=== PATIENT | female | born 1930 | race African-American/Black ===

== ENCOUNTER 2016-10-27 21:14 | Inpatient (IN) ==
[2016-10-27] MEDS ORDERED: ONDANSETRON 4 MG/2 ML VIAL IV STA (21:45)
[2016-10-27] MEDS ORDERED: MORPHINE 2 MG/1 ML SYRINGE IV STA (21:45)
--- NOTE | 2016-10-27 22:02 | Emergency Department Note ---
Erika Ricardo Emily, am scribing for, and in the presence of, Cristofer Shearer MD 21: 47. Manfred Ricardo Robert M, MD, personally performed the services described in this documentation, ascribed by Niki James in my presence, and it is both accurate and complete . Arrival - Arrival Chief Complaint: Extremity Injury Stated Complaint: femur fx ED Nursing Triage Note: Patient to ED via EMS transfered to us from [facility] ED with c/o right femur neck fracture and dislocation s/p fall at home this morning. Patient arrives with radiology dis and records from [place] ED. Patient ntoed to have shortening and external rotation upon arrival. positive pedal pulses. Mode of Arrival: Stretcher Limitations: No Limitations Source: Patient - History of Present Illness HPI Narrative: Pt is a 85 y/o female who came to ED by EMS transferred from [facility] ED with c/o right femur neck fracture and dislocation s/p fall at home this afternoon. Family member notes getting to hospital around 4pm this afternoon. Pt states she is in pain in ED. Onset (ago): hour(s) Consistency: constant Severity: moderate Severity scale (1-10): 7 Quality: aching Allergies/Adverse Reactions: Allergies Allergy/AdvReac Type Severity Reaction Status Date / Time No Known Allergies Allergy Unverified 10/27/16 21:29 Review of System - Review of System 12 point system: reviewed and no additional remarkable complaints except as stated - Review of System Constitutional: Absent: fever Cardiovascular: Absent: chest pain, syncope Gastrointestinal: Absent: abdominal pain Musculoskeletal: Present: leg pain (right leg). Absent: neck pain Skin: Absent: rash Neurological: Absent: headache Medical,Surgical,& Family Hx - Medical History Cardio: History of: Hypertension Endocrine: History of: Dyslipidemia - Surgical History Orthopedic Surgeries: Surgical HX of;: Orthopedic Surgery (left hip) - Social History Smoking Status: Never smoker Frequency of Alcohol Use: None Type of Drug Use: None Exam Vital Signs: Vital Signs Temperature 100.8 F H 10/27/16 21:14 Pulse Rate 75 10/27/16 21:14 Respiratory Rate 18 10/27/16 21:14 Blood Pressure 187/95 10/27/16 21:14 O2 Sat by Pulse Oximetry 95 10/27/16 21:14 - General General appearance: alert, in distress (secondary to pain) - Head Head exam: Present: atraumatic, normocephalic - Eye Eye exam: Present: PERRL, EOMI - ENT ENT exam: Present: mucous membranes moist. Absent: mucous membranes dry - Neck Neck exam: Present: full ROM. Absent: tenderness - Chest Chest inspection: Present: symmetric chest wall rise. Absent: tenderness - Respiratory Respiratory exam: Present: normal lung sounds bilaterally. Absent: respiratory distress - Cardiovascular Cardiovascular exam: Present: regular rate, normal rhythm, normal heart sounds - Extremities Exam Extremities exam: Present: tenderness (shortened right leg and slightly rotated ; good pulses). Absent: full ROM (limited ROM due to pain), pedal edema - Neurological Exam Neurological exam: Present: alert, oriented X3, CN II-XII intact. Absent: motor sensory deficit - Psychiatric Psychiatric exam: Present: normal affect, normal mood - Skin Skin exam: Present: warm, dry Course - Consultations Consultation #1: The labs are returning. Dr. Schmidt was patient will admit the patient to the hospitalist service. The previous orthopedic/hospitalist admission arrangement. She wants me to call her again when all the labs come back. Time: 22:42 Consultation #2: The patient's labs have returned. In the interim I admitted the patient to Dr. Baum and will have the nurses notify her when the labs have returned. Time: 23:46 Results - Labs CBC & BMP: 10/27/16 22:08 10/27/16 22:08 Lab Results: I have reviewed the patients labs Labs: Lab Results WBC 8.4 T/CUMM (4-12) 10/27/16 22:08 RBC 3.21 MC/CUMM (3.8-5.5) L 10/27/16 22:08 Hgb 10.2 GM/DL (12.0-16.0) L 10/27/16 22:08 Hct 30.3 VOL% (35.7-47.0) L 10/27/16 22:08 MCV 94.4 FL (87-102) 10/27/16 22:08 MCH 32 PG (27-34) 10/27/16 22:08 MCHC 33.7 GM/DL (32-36) 10/27/16 22:08 RDW 14.9 % (9.3-17.3) 10/27/16 22:08 Plt Count 176 T/CUMM (130-400) 10/27/16 22:08 MPV 10.7 FL (9.6-12.0) 10/27/16 22:08 Neut % (Auto) 70.4 % (38.7-73.9) 10/27/16 22:08 Lymph % (Auto) 16.4 % (21.3-54.2) L 10/27/16 22:08 [place] % (Auto) 11.7 % (1.7-12.7) 10/27/16 22:08 Eos % (Auto) 1.1 % (0.00-10.9) 10/27/16 22:08 Baso % (Auto) 0.2 % (0.0-0.8) 10/27/16 22:08 Neut # (Auto) 5.9 10*3/uL (1.4-7.4) 10/27/16 22:08 Lymph # (Auto) 1.4 10*3/uL (1.4-4.0) 10/27/16 22:08 [place] # (Auto) 1.0 10*3/uL (0.11-0.8) H 10/27/16 22:08 Eos # (Auto) 0.1 10*3/uL (0.0-0.87) 10/27/16 22:08 Baso # (Auto) 0.0 10*3/uL (0.0-0.2) 10/27/16 22:08 Immature Gran % 0.2 % 10/27/16 22:08 Nucleated RBC % 0.0 /100WBC 10/27/16 22:08 Immature Gran # 0.02 # 10/27/16 22:08 Nucleated RBCs # 0.00 10*3/uL 10/27/16 22:08 Sodium 145 MMOL/L (136-145) 10/27/16 22:08 Potassium 2.9 MMOL/L (3.5-5.1) L 10/27/16 22:08 Chloride 111 MMOL/L (98-107) H 10/27/16 22:08 Carbon Dioxide 26 MMOL/L (21-32) 10/27/16 22:08 Anion Gap 10.9 MMOL/L (5.0-15.0) 10/27/16 22:08 BUN 12 MG/DL (7-18) 10/27/16 22:08 Creatinine 1.20 MG/DL (0.55-1.02) H 10/27/16 22:08 GFR Calculation 44 ML/MIN 10/27/16 22:08 BUN/Creatinine Ratio 10.00 RATIO (6.00-20.00) 10/27/16 22:08 Glucose 98 MG/DL (74-106) 10/27/16 22:08 Calculated Osmolality 287.7 MOS/KG (273-304) 10/27/16 22:08 Calcium 8.3 MG/DL (8.5-10.1) L 10/27/16 22:08 Magnesium 1.5 MG/DL (1.8-2.4) L 10/27/16 22:08 Urine Color Straw (Yellow) 10/27/16 22:08 Urine Appearance Clear (Clear) 10/27/16 22:08 Urine pH 5.0 (4.5-8.0) 10/27/16 22:08 Ur Specific [place] 1.004 (1.001-1.035) 10/27/16 22:08 Urine Protein Negative MG/DL 10/27/16 22:08 Urine Glucose (UA) Negative mg/dL (Negative) 10/27/16 22:08 Urine Ketones Negative mg/dL (Negative) 10/27/16 22:08 Urine Blood Small mg/dL (Negative) 10/27/16 22:08 Urine Nitrate Positive (Negative) H 10/27/16 22:08 Urine Bilirubin Negative mg/dL (Negative) 10/27/16 22:08 Urine Urobilinogen < 2.0 EU/DL (0.2-1.0) H 10/27/16 22:08 Urine Leukocytes Negative Marcelino/ul (Negative) 10/27/16 22:08 Urine RBC <1 /HPF (0-4) 10/27/16 22:08 Urine WBC 1 /HPF (0-6) 10/27/16 22:08 Ur Culture Indicated? Results to follow 10/27/16 22:08 Disposition Clinical Impression: Subcapital fracture of right hip Case discussed with: patient, patient's family Disposition: Disch To Home/Self Care Condition: Stable Time of Disposition: 23:47
[2016-10-27] MEDS ORDERED: ONDANSETRON 4 MG/2 ML VIAL ONE (22:28)
[2016-10-27] MEDS ORDERED: MORPHINE 2 MG/1 ML SYRINGE ONE (22:28)
[2016-10-27 22:30] LABS: Basophils % 0.2 % (0.0-0.8); Eosinophils # 0.1 10*3/uL (0.0-0.87); Eosinophils % 1.1 % (0.00-10.9); Hematocrit 30.3 VOL% (35.7-47.0); Hemoglobin 10.2 GM/DL (12.0-16.0); Immature Granulocytes % 0.2 %; Immature Granulocytes Absolute 0.02 #; Lymphocytes # 1.4 10*3/uL (1.4-4.0); Lymphocytes % 16.4 % (21.3-54.2); Mean Corpuscular HGB Conc 33.7 GM/DL (32-36); Mean Corpuscular Hemoglobin 32 PG (27-34); Mean Corpuscular Volume 94.4 FL (87-102); Mean Platelet Volume 10.7 FL (9.6-12.0); Monocytes % 11.7 % (1.7-12.7); Neutrophils # 5.9 10*3/uL (1.4-7.4); Neutrophils % 70.4 % (38.7-73.9); Platelet Count 176 T/CUMM (130-400); Red Blood Count 3.21 MC/CUMM (3.8-5.5); Red Cell Distribution Width 14.9 % (9.3-17.3); White Blood Count 8.4 T/CUMM (4-12)
[2016-10-27 22:35] LABS: Apearance,Urine CLEAR (Clear); Bilirubin,Urine Negative (Negative); Blood, Urine Small mg/dL (Negative); Glucose,Urine (UA) Negative (Negative); Ketones,Urine Negative (Negative); Nitrite,Urine Positive (Negative); Protein,Urine Negative; RBC,Urine <1 /HPF (0-4); Urine Color Straw (Yellow); Urine Specific Gravity 1.004 (1.001-1.035); Urine Urobilinogen < 2.0 EU/DL (0.2-1.0); WBC,Urine 1 /HPF (0-6)
[2016-10-27 22:49] LABS: Calcium 8.3 MG/DL (8.5-10.1); Magnesium 1.5 MG/DL (1.8-2.4); Osmolality,Calculated 287.7 MOS/KG (273-304); Potassium 2.9 MMOL/L (3.5-5.1)
[2016-10-27] MEDS ORDERED: ONDANSETRON 4 MG/2 ML VIAL IV PRN (22:54)
--- NOTE | 2016-10-28 00:45 | Hospitalist History & Physical ---
Assessment and Plan (1) Subcapital fracture of right hip Status: Acute Assessment and plan: due to fall, patient denies hitting her head on the floor. Plan Orthopedic consult, follow recommendations. Current Visit: Yes (2) Hypokalemia Status: Acute Assessment and plan: we will replete, check Mg level BMP in am Current Visit: Yes (3) UTI (urinary tract infection) Status: Acute Assessment and plan: will start IV Rocephin UC, BC Current Visit: Yes (4) Anemia Status: Acute Assessment and plan: resume Fe supplements, we will monitor H/H closely and transfuse on a prn basis Current Visit: Yes (5) HTN (hypertension) Status: Acute Assessment and plan: we will resume home meds, follow response Current Visit: Yes (6) Hyperlipidemia Status: Acute Assessment and plan: resume statins Current Visit: Yes History of Present Illness Chief complaint: fall resulting in left hip pain History of present illness: Ms. Stiles is a 85 year old female with a history of HTN, CAD s/p stent, hyperlipidemia who presents with a right hip pain. 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 She was taken to [facility] where they discovered a right femur neck fracture and dislocation on Xray and was transferred here for orthopedics evaluation.No history of syncope, chest pain, chest tightness, no leg swelling. No nausea, vomiting.Labs showed presence of a UTI and a potassium of 2.9. We will commence potassium replacements and IV antibiotics. Home Medications Medication Instructions Recorded Confirmed Type Aspirin Tab 325 mg PO DAILY 10/28/16 10/28/16 History Atorvastatin [Lipitor] 20 mg PO BEDTIME 10/28/16 10/28/16 History Ferrous Gluconate 324 mg PO DAILY 10/28/16 10/28/16 History Losartan [Cozaar] 12.5 mg PO DAILY 10/28/16 10/28/16 History Metoprolol Tartrate 100 mg PO BID 10/28/16 10/28/16 History Multivitamin with Minerals 1 each PO DAILY 10/28/16 10/28/16 History [Multivitamins with Minerals] amLODIPine [Norvasc] 5 mg PO DAILY 10/28/16 10/28/16 History Allergies Allergy/AdvReac Type Severity Reaction Status Date / Time No Known Allergies Allergy Unverified 10/27/16 21:29 Medical,Surgical,& Family Hx - Medical History Cardio: History of: Hypertension, Cardiovascular Problems (cardiac stents) Endocrine: History of: Dyslipidemia - Surgical History Orthopedic Surgeries: Surgical HX of;: Orthopedic Surgery (left hip) - Family History Family History: Reports;: Family Cancer (brother, father), Family Heart Disease (brother), Family Hypertension (mother, brother), Family Stroke (brother) - Social History Smoking Status: Never smoker Frequency of Alcohol Use: None Type of Drug Use: None 12 point system: reviewed and no additional remarkable complaints except as stated Exam - Constitutional Vitals: Period Temp Pulse Resp BP Sys/Epps Pulse Ox Last 24 Hr 98.0 F-100.8 F 72-75 18-18 156-187/69-95 95-97 General appearance: no acute distress - Head Head exam: Present: normal inspection - Respiratory Respiratory exam: Present: clear to auscultation bilaterally - Cardiovascular Cardiovascular exam: Present: regular rate and rhythm - GI/Abdominal GI/Abdominal exam: Present: normal bowel sounds - Extremities Exam Extremities exam: Present: other (right hip fracture) - Neurological Exam Neurological exam: Present: alert, oriented X3 Results - Labs CBC & BMP: 10/27/16 22:08 10/27/16 22:08 Lab Results: I have reviewed the past 24 hour labs
[2016-10-28] MEDS ORDERED: ONDANSETRON 4 MG/2 ML VIAL IV PRN (00:50)
[2016-10-28] MEDS ORDERED: MORPHINE 2 MG/1 ML SYRINGE IV PRN (00:50)
[2016-10-28] MEDS ORDERED: SODIUM CHLORIDE 0.45% 1,000 ML IV SCH (01:00)
[2016-10-28 01:09] LABS: Basophils % 0.2 % (0.0-0.8); Eosinophils # 0.1 10*3/uL (0.0-0.87); Eosinophils % 1.4 % (0.00-10.9); Hematocrit 27.9 VOL% (35.7-47.0); Hemoglobin 9.4 GM/DL (12.0-16.0); Immature Granulocytes % 0.4 %; Immature Granulocytes Absolute 0.03 #; Lymphocytes # 0.7 10*3/uL (1.4-4.0); Lymphocytes % 8.5 % (21.3-54.2); Mean Corpuscular HGB Conc 33.7 GM/DL (32-36); Mean Corpuscular Hemoglobin 32 PG (27-34); Mean Corpuscular Volume 94.6 FL (87-102); Mean Platelet Volume 10.8 FL (9.6-12.0); Monocytes # 0.9 10*3/uL (0.11-0.8); Monocytes % 11.4 % (1.7-12.7); Neutrophils # 6.5 10*3/uL (1.4-7.4); Neutrophils % 78.1 % (38.7-73.9); Platelet Count 156 T/CUMM (130-400); Red Blood Count 2.95 MC/CUMM (3.8-5.5); Red Cell Distribution Width 14.9 % (9.3-17.3); White Blood Count 8.3 T/CUMM (4-12)
[2016-10-28] MEDS: cefTRIAXone 1,000 MG in SODIUM CHLORIDE 0.9% 100 ML IV SCH (01:53)
[2016-10-28] MEDS: SODIUM CHLOR 0.45% KCL 20 MEQ 20 MEQ/1,000 ML BAG IV SCH ×2 (01:53→19:20)
[2016-10-28 01:58] LABS: Calcium 7.8 MG/DL (8.5-10.1); Magnesium 1.5 MG/DL (1.8-2.4); Osmolality,Calculated 288.7 MOS/KG (273-304); Potassium 2.8 MMOL/L (3.5-5.1)
--- NOTE | 2016-10-28 06:48 | XRay Report ---
History: Respiratory preop evaluation Date: 10/28/2016 Study: Chest x-ray AP portable Comparison exam: December 05, 2013 The cardiac silhouette is upper normal in size. There is ectasia and tortuosity of the thoracic aorta. No definite mediastinal mass is seen. The pulmonary vasculature is not engorged. There is no gross pleural effusion. There is mild platelike scar or subsegmental atelectasis in the left lung base. There is mild thoracic spondylosis and mild osteopenia. Impression: No definite acute process compared to the previous study. Thoracic aorta ectasia and tortuosity as before. Minimal platelike scar or subsegmental atelectasis left lung base PROCEDURE INTERPRETED AT [facility] DEPARTMENT OF RADIOLOGY Final Report Signed by: Dr. Keiko Kwon
--- NOTE | 2016-10-28 08:19 | EKG Report ---
Stationary ECG Study [facility] ER Test Date: 10/27/2016 10:15:11 PM Pat Name: KETAN ABURTO Department: Room: 322 Gender: F Cnp: : [phone] Requested by: Cristofer Shearer Order Number: [id number] Reading MD: BERONICA HOANG Intervals [place] Rate: 74 P: 65 DE: 168 QRS: -6 QRSD: 98 T: 16 QT: 402 QTc: 429 Interpretive Statements SINUS RHYTHM LOW QRS VOLTAGE IN PRECORDIAL LEADS POSSIBLE INFERIOR MYOCARDIAL INFARCTION, PROBABLY OLD NON-SPECIFIC ST-T CHANGES AND BIATRIAL ABNORMALITY Electronically Signed On 10-30-16 12:10:12 CDT by BERONICA HOANG [email or web address]
[2016-10-28] MEDS ORDERED: MAGNESIUM SULF RIDER 4 GM in PREMIX 1 EACH IV ONE (08:26)
[2016-10-28] MEDS: METOPROLOL TARTRATE 100 MG TABLET PO SCH ×2 (08:40→20:34)
[2016-10-28] MEDS: POTASSIUM CHLORIDE RIDER 10 MEQ in PREMIX 1 EACH IV SCH ×2 (08:40→12:25)
[2016-10-28] MEDS: LOSARTAN 25 MG TABLET PO SCH (08:40)
[2016-10-28] MEDS: MULTIVITAMIN (CENTRUM) TABLET PO SCH (08:40)
[2016-10-28] MEDS: FERROUS GLUCONATE 324 MG TABLET PO SCH (08:40)
[2016-10-28] MEDS: amLODIPine 2.5 MG TABLET PO SCH (08:51)
[2016-10-28] MEDS: PANTOPRAZOLE 40 MG TABLET PO SCH (08:51)
--- NOTE | 2016-10-28 09:03 | Orthopedic Consult Note ---
History of Present Illness Chief complaint: Right hip pain History of present illness: Ms. Stiles is a 85 year old female who fell wearing house shoes while she was entering the house yesterday. She states that how she is did not have good traction and she fell. She injured her right hip. She denies any previous problems. She denies any other injury. Alert and oriented. Spine, bilateral upper extremities and left lower extremity without acute deformity. Right lower extremity is shortened and externally rotated. She can flex extend her toes. She has palpable dorsalis pedis pulse. Capillary refill is less than 2 seconds. Sensations intact to her first dorsal webspace, plantar dorsal aspects of her foot. An x-ray AP pelvis was reviewed. She has a displaced femoral neck fracture. Impression: Right displaced femoral neck fracture Plan: I have advised a right hip hemiarthroplasty. Risks and benefits were discussed all questions were answered. The patient currently has hypomagnesemia and hypokalemia which is currently being corrected. We will plan proceeding with surgery tomorrow. I have ordered a type and screen and AP lateral x-rays of right hip. Home Medications Medication Instructions Recorded Confirmed Type Aspirin Tab 325 mg PO DAILY 10/28/16 10/28/16 History Atorvastatin [Lipitor] 20 mg PO BEDTIME 10/28/16 10/28/16 History Ferrous Gluconate 324 mg PO DAILY 10/28/16 10/28/16 History Losartan [Cozaar] 12.5 mg PO DAILY 10/28/16 10/28/16 History Metoprolol Tartrate 100 mg PO BID 10/28/16 10/28/16 History Multivitamin with Minerals 1 each PO DAILY 10/28/16 10/28/16 History [Multivitamins with Minerals] amLODIPine [Norvasc] 5 mg PO DAILY 10/28/16 10/28/16 History Allergies Allergy/AdvReac Type Severity Reaction Status Date / Time No Known Allergies Allergy Unverified 10/27/16 21:29 12 point system: reviewed and no additional remarkable complaints except as stated Medical,Surgical,& Family Hx - Medical History Cardio: History of: Hypertension, Cardiovascular Problems (cardiac stents) Endocrine: History of: Dyslipidemia - Surgical History Orthopedic Surgeries: Surgical HX of;: Orthopedic Surgery (left hip) - Family History Family History: Reports;: Family Cancer (brother, father), Family Heart Disease (brother), Family Hypertension (mother, brother), Family Stroke (brother) - Social History Smoking Status: Never smoker Frequency of Alcohol Use: None Type of Drug Use: None Exam - Constitutional Vitals: Period Temp Pulse Resp BP Sys/Epps Pulse Ox Last 24 Hr 97.6 F-100.8 F 69-75 15-20 132-187/69-95 91-97 Results - Labs CBC & BMP: 10/28/16 01:00 10/28/16 01:00 Assessment and Plan (1) Subcapital fracture of right hip Status: Acute Current Visit: Yes Qualifiers: Encounter type: initial encounter Fracture type: closed Qualified Code(s) : S72.011A - Unspecified intracapsular fracture of right femur, initial encounter for closed fracture
--- NOTE | 2016-10-28 11:06 | XRay Report ---
History: Femoral neck fracture Date: 10/28/2016 Study: Right hip single view Comparison exam: 10/27/2016 There is a subcapital fracture of the right hip which is acute or early subacute. There is mild superior-lateral displacement of the distal fracture fragment with relatively good alignment. Impression: Subcapital fracture right hip, unchanged from the previous day PROCEDURE INTERPRETED AT [facility] DEPARTMENT OF RADIOLOGY Final Report Signed by: Dr. Keiko Kwon
[2016-10-28] MEDS: POTASSIUM CHLORIDE 20 MEQ TABLET PO SCH ×4 (12:01→20:34)
[2016-10-28] MEDS ORDERED: POTASSIUM CHLORIDE RIDER 10 MEQ in PREMIX 1 EACH IV SCH (12:30)
[2016-10-28] MEDS: ATORVASTATIN 20 MG TABLET PO SCH (20:34)
[2016-10-29] MEDS: POTASSIUM CHLORIDE 20 MEQ TABLET PO SCH (00:39)
[2016-10-29] MEDS: cefTRIAXone 1,000 MG in SODIUM CHLORIDE 0.9% 100 ML IV SCH (00:39)
[2016-10-29] MEDS: SODIUM CHLOR 0.45% KCL 20 MEQ 20 MEQ/1,000 ML BAG IV SCH (04:58)
[2016-10-29 05:09] LABS: Eosinophils # 0.3 10*3/uL (0.0-0.87); Eosinophils % 4.6 % (0.00-10.9); Hematocrit 26.7 VOL% (35.7-47.0); Hemoglobin 8.8 GM/DL (12.0-16.0); Immature Granulocytes % 1.3 %; Immature Granulocytes Absolute 0.07 #; Lymphocytes # 0.6 10*3/uL (1.4-4.0); Lymphocytes % 11.2 % (21.3-54.2); Mean Corpuscular Hemoglobin 32 PG (27-34); Mean Corpuscular Volume 98.2 FL (87-102); Mean Platelet Volume 11.1 FL (9.6-12.0); Monocytes # 0.8 10*3/uL (0.11-0.8); Monocytes % 14.3 % (1.7-12.7); Neutrophils # 3.8 10*3/uL (1.4-7.4); Neutrophils % 68.6 % (38.7-73.9); Platelet Count 148 T/CUMM (130-400); Red Blood Count 2.72 MC/CUMM (3.8-5.5); Red Cell Distribution Width 15.1 % (9.3-17.3); White Blood Count 5.5 T/CUMM (4-12)
[2016-10-29 05:39] LABS: Calcium 7.8 MG/DL (8.5-10.1); Magnesium 2.7 MG/DL (1.8-2.4); Osmolality,Calculated 282.3 MOS/KG (273-304); Potassium 5.1 MMOL/L (3.5-5.1)
[2016-10-29] MEDS ORDERED: VANCOMYCIN INJ 1,000 MG in SODIUM CHLORIDE 0.9% 250 ML IV ONE (06:00)
[2016-10-29] MEDS ORDERED: BACITRACIN OINT 0.9 GM PACK TOP ONE (06:46)
[2016-10-29] MEDS ORDERED: TRANEXAMIC ACID 1,000 MG/10 ML VIAL IV ONE (06:47)
[2016-10-29] MEDS ORDERED: MAGNESIUM HYDROXIDE SUSP 30 ML UDCUP PO PRN (08:13)
[2016-10-29] MEDS ORDERED: MORPHINE 2 MG/1 ML SYRINGE IV PRN (08:13)
--- NOTE | 2016-10-29 08:17 | Operative Note ---
Procedure: DIAGNOSIS: Right displaced femoral neck fracture PROCEDURE: Right cemented hip hemiarthroplasty (CPT # 57166) SURGEON: Lisette ANESTHESIA: Spinal PROCEDURE and FINDINGS: After adequate anesthesia was induced, her operative hip was prepped and draped in usual sterile sterile fashion in the lateral decubitus position. Posterior lateral approach was made. Skin and subcutaneous tissue and deep fascia was incised. The gluteus james muscle belly was split in line with its fibers. Piriformis, capsule and external rotators were taken down in a single layer for future repair. Templated femoral neck cut was made. Femoral head was removed from the acetabulum. Acetabulum was sized to 47 mm. Femur was prepared with the box osteotome, canal finder and sequential broaches to size 12. Components were trialed. Femoral stem was implanted with modern cementing techniques. Palacos cement, a distal centralizer and cement plug were used. Excess cement was removed. A size 12 LD/ FX Versys stem was used. The femoral head was re-trialed and the final head was selected. A 47 mm bipolar endohead with a +7 mm neck length was used. Capsule and external rotators were repaired to the greater trochanter with #5 Tycron. Fascia was repaired with 0 Vicryl ccyccn-or-blfon sutures. Deep subcutaneous tissue was closed with a 2-0 Vicryl running suture. Superficial subcutaneous tissues were approximated with interrupted 3-0 Vicryl sutures. [place] were used to approximate skin. Bacitracin and a sterile dressing were applied. Surgeon / Physician: Gurvinder Knox Jr. Results - Labs CBC & BMP: 10/29/16 04:22 10/29/16 04:22 Discharge Plan - Discharge Medications No Action Ferrous Gluconate 324 mg PO DAILY Losartan [Cozaar] 12.5 mg PO DAILY amLODIPine [Norvasc] 5 mg PO DAILY Multivitamin with Minerals [Multivitamins with Minerals] 1 each PO DAILY Atorvastatin [Lipitor] 20 mg PO BEDTIME Metoprolol Tartrate 100 mg PO BID Aspirin Tab 325 mg PO DAILY - Follow Up or Referral - Forms/Instructions
--- NOTE | 2016-10-29 09:40 | Anesthesia Post-Op ---
Anesthesia Post OP - Post Ansesthetic Evaluation Patient seen in post op: Yes Resp: within normal limits CV: within normal limits Mental: within normal limits Temp: within normal limits Btni-He-Gmkthkehy: within normal limits Nausea and Vomiting: within normal limits Pain: within normal limits
[2016-10-29] MEDS ORDERED: ONDANSETRON 4 MG/2 ML VIAL ONE ×2 (09:51→09:57)
[2016-10-29] MEDS ORDERED: MIDAZOLAM 2 MG/2 ML VIAL ONE (09:56)
[2016-10-29] MEDS ORDERED: PROPOFOL 200 MG/20 ML VIAL IV ONE (09:56)
[2016-10-29] MEDS ORDERED: SODIUM CHLORIDE 0.9% 200 ML IV ONE (09:57)
[2016-10-29] MEDS ORDERED: KETAMINE 500 MG/10 ML VIAL ONE (09:57)
[2016-10-29] MEDS ORDERED: ACETAMINOPHEN 1,000 MG/100 ML VIAL IV ONE (09:57)
[2016-10-29] MEDS ORDERED: KETOROLAC 30 MG/1 ML VIAL ONE (09:57)
[2016-10-29] MEDS ORDERED: fentaNYL 100 MCG/2 ML VIAL ONE (09:57)
[2016-10-29] MEDS: KETOROLAC 15 MG/1 ML VIAL IV SCH ×3 (11:31→21:46)
[2016-10-29] MEDS: DEXTROSE 5% LACTATED RINGERS 1,000 ML IV SCH ×3 (12:40→21:52)
[2016-10-29] MEDS: LOSARTAN 25 MG TABLET PO SCH (12:47)
[2016-10-29] MEDS: PANTOPRAZOLE 40 MG TABLET PO SCH (12:48)
[2016-10-29] MEDS: amLODIPine 2.5 MG TABLET PO SCH (12:48)
[2016-10-29] MEDS: METOPROLOL TARTRATE 100 MG TABLET PO SCH ×2 (12:49→21:46)
[2016-10-29] MEDS: FERROUS GLUCONATE 324 MG TABLET PO SCH (12:50)
[2016-10-29] MEDS: MULTIVITAMIN (CENTRUM) TABLET PO SCH (12:51)
[2016-10-29] MEDS: DOCUSATE SODIUM 100 MG CAPSULE PO SCH ×2 (12:51→21:46)
[2016-10-29] MEDS: ACETAMINOPHEN 500 MG TABLET PO SCH ×2 (12:52→17:31)
--- NOTE | 2016-10-29 14:09 | Orthopedic Progress Note ---
Assessment and Plan (1) Subcapital fracture of right hip Status: Acute Current Visit: Yes Qualifiers: Encounter type: initial encounter Fracture type: closed Qualified Code(s) : S72.011A - Unspecified intracapsular fracture of right femur, initial encounter for closed fracture Orthopedics - Subjective Interval history: Ms. Stiles is comfortable postop. Dressing clean, dry and intact. Right lower extremities neurovascularly unchanged. Plan: Continue with current orders. I discussed discharge options with the patient and her family. Exam - Constitutional Vitals: Period Temp Pulse Resp BP Sys/Epps Pulse Ox Last 24 Hr 97.1 F-99.0 F 67-81 16-20 101-188/71-99 91-100 Results - Labs CBC & BMP: 10/29/16 04:22 10/29/16 04:22 Quality Measures - VTE Contraindication to Pharmacological VTE Prophylaxis: High Risk of Bleeding
--- NOTE | 2016-10-29 14:14 | XRay Report ---
XR hip 1V RT Indication: Postop right hip. Comparison: Right hip x-ray 10/28/2016 Technique: Portable AP view of the right hip. Findings: Findings compatible with recent bipolar hip arthroplasty are demonstrated. There is no evidence of periprosthetic fracture. Subcutaneous air related to recent surgery is present. Multiple skin clips are demonstrated. Impression: 1. Recent bipolar hip arthroplasty is demonstrated. 10/29/2016 2:10 PM PROCEDURE INTERPRETED AT [facility] DEPARTMENT OF RADIOLOGY Final Report Signed by: Dr. Mo Shearer
--- NOTE | 2016-10-29 14:57 | Case Mgmt Physician Query Form ---
TB Signs and Symptoms Screening ([place]) INSTRUCTIONS: To be completed annually on residents/staff with a significant Tuberculin Skin Test (TST) upon admission/hire or a prior significant TST. To be completed on all staff at hire. Please respond to each listed symptom with an (X) in either the "YES" or "NO" box. Do you currently have any of the following symptoms: YES NO ( ) ( x) A cough If yes, is it: ( ) Productive ( ) Non- productive ( ) ( x) Hemoptysis (spitting up blood) ( ) ( x) Chest pains ( ) ( x) Weight Loss ( ) ( x) Fever ( ) ( x) Night Sweats ( ) ( x) Weakness ( ) ( x) Loss of Appetite ( ) ( x) Difficulty Breathing If you answered YES" to any of the above questions, how long have symptoms been present? Comments: If you hav any questions, please contact me. Thank you, Socorro HUANG P: [phone] F: [phone] E: [email or web address]
--- NOTE | 2016-10-29 17:07 | Hospitalist Progress Note ---
Assessment and Plan (1) Subcapital fracture of right hip Status: Acute Assessment and plan: The patient has had surgery for the right hip. The patient now begins rehabilitation. Will recheck potassium and magnesium in the morning. Current Visit: Yes Qualifiers: Encounter type: initial encounter Fracture type: closed Qualified Code(s) : S72.011A - Unspecified intracapsular fracture of right femur, initial encounter for closed fracture (2) UTI (urinary tract infection) Status: Acute Current Visit: Yes Hospitalist: Subjective Interval history: The patient had hip surgery today. She is resting quietly in bed without any new complaints. Exam - Constitutional Vitals: Period Temp Pulse Resp BP Sys/Epps Pulse Ox Last 24 Hr 97.1 F-99.0 F 65-81 16-20 101-188/68-99 91-100 General appearance: mild distress - Respiratory Respiratory exam: Present: clear to auscultation bilaterally - Cardiovascular Cardiovascular exam: Present: regular rate and rhythm - GI/Abdominal GI/Abdominal exam: Present: normal bowel sounds Results - Labs CBC & BMP: 10/29/16 04:22 10/29/16 04:22 Lab Results: I have reviewed the past 24 hour labs Quality Measures - VTE Contraindication to Pharmacological VTE Prophylaxis: High Risk of Bleeding
[2016-10-29] MEDS: ATORVASTATIN 20 MG TABLET PO SCH (21:46)
[2016-10-30] MEDS: cefTRIAXone 1,000 MG in SODIUM CHLORIDE 0.9% 100 ML IV SCH (00:31)
[2016-10-30] MEDS: ACETAMINOPHEN 500 MG TABLET PO SCH ×2 (00:31→06:07)
[2016-10-30] MEDS: KETOROLAC 15 MG/1 ML VIAL IV SCH (02:10)
[2016-10-30] MEDS: FONDAPARINUX 2.5 MG/0.5 ML SYRINGE SUBCUT SCH (02:10)
[2016-10-30 02:44] LABS: Basophils % 0.2 % (0.0-0.8); Eosinophils # 0.2 10*3/uL (0.0-0.87); Eosinophils % 2.9 % (0.00-10.9); Hematocrit 24.9 VOL% (35.7-47.0); Hemoglobin 8.2 GM/DL (12.0-16.0); Immature Granulocytes % 1.3 %; Immature Granulocytes Absolute 0.08 #; Lymphocytes # 0.9 10*3/uL (1.4-4.0); Lymphocytes % 14.6 % (21.3-54.2); Mean Corpuscular HGB Conc 32.9 GM/DL (32-36); Mean Corpuscular Hemoglobin 32 PG (27-34); Mean Corpuscular Volume 97.3 FL (87-102); Mean Platelet Volume 11.4 FL (9.6-12.0); Monocytes # 0.7 10*3/uL (0.11-0.8); Monocytes % 10.7 % (1.7-12.7); Neutrophils # 4.4 10*3/uL (1.4-7.4); Neutrophils % 70.3 % (38.7-73.9); Platelet Count 130 T/CUMM (130-400); Red Blood Count 2.56 MC/CUMM (3.8-5.5); Red Cell Distribution Width 15.1 % (9.3-17.3); White Blood Count 6.3 T/CUMM (4-12)
[2016-10-30 03:21] LABS: Calcium 7.4 MG/DL (8.5-10.1); Osmolality,Calculated 277.4 MOS/KG (273-304); Potassium 4.5 MMOL/L (3.5-5.1)
[2016-10-30 03:44] LABS: Band Neutrophils 6 % (0-10); Eosinophils 1 % (0-10); Lymphocytes 14 % (20-55); Nucleated Red Blood Cells 1 (0-5); Total Cells Counted 100
[2016-10-30 03:45] LABS: Burr Cells Few; Platelet Estimate Normal
[2016-10-30 03:46] LABS: Elliptocytes Few
[2016-10-30 03:47] LABS: Atypical Lymphocytes Few; Segmented Neutrophils 70 % (50-85)
--- NOTE | 2016-10-30 07:05 | Orthopedic Progress Note ---
Assessment and Plan (1) Subcapital fracture of right hip Status: Acute Assessment and plan: Status post hemiarthroplasty Discontinue [place] and IV fluids DVT prophylaxis Out of bed with therapy today Discharge planning Current Visit: Yes Qualifiers: Encounter type: initial encounter Fracture type: closed Qualified Code(s) : S72.011A - Unspecified intracapsular fracture of right femur, initial encounter for closed fracture Orthopedics - Subjective Interval history: Patient is currently comfortable, pain is controlled. No acute events overnight. On exam her dressings clean and dry she is neurovascular intact right foot. Exam - Constitutional Vitals: Period Temp Pulse Resp BP Sys/Epps Pulse Ox Last 24 Hr 97.1 F-99.0 F 65-77 16-20 101-188/61-99 90-100 Results - Labs CBC & BMP: 10/30/16 01:54 10/30/16 01:54 Quality Measures - VTE Contraindication to Pharmacological VTE Prophylaxis: High Risk of Bleeding
[2016-10-30] MEDS: LOSARTAN 25 MG TABLET PO SCH (08:15)
[2016-10-30] MEDS: amLODIPine 2.5 MG TABLET PO SCH (08:16)
[2016-10-30] MEDS: METOPROLOL TARTRATE 100 MG TABLET PO SCH ×2 (08:16→21:11)
[2016-10-30] MEDS: MULTIVITAMIN (CENTRUM) TABLET PO SCH (08:16)
[2016-10-30] MEDS: FERROUS GLUCONATE 324 MG TABLET PO SCH (08:17)
[2016-10-30] MEDS: DOCUSATE SODIUM 100 MG CAPSULE PO SCH ×2 (08:17→21:11)
--- NOTE | 2016-10-30 09:27 | Hospitalist Progress Note ---
Assessment and Plan (1) Subcapital fracture of right hip Status: Acute Assessment and plan: The patient has had surgery for the right hip. The patient now begins rehabilitation. Electrolytes and blood counts are appropriate. Current Visit: Yes Qualifiers: Encounter type: initial encounter Fracture type: closed Qualified Code(s) : S72.011A - Unspecified intracapsular fracture of right femur, initial encounter for closed fracture (2) UTI (urinary tract infection) Status: Acute Current Visit: Yes Hospitalist: Subjective Interval history: The patient is recovering well from her surgery yesterday. The patient is standing and ambulating with assistance. The patient's affect is optimistic. Exam - Constitutional Vitals: Period Temp Pulse Resp BP Sys/Epps Pulse Ox Last 24 Hr 97.1 F-99.0 F 65-77 16-20 101-188/61-99 90-100 General appearance: no acute distress - Respiratory Respiratory exam: Present: clear to auscultation bilaterally - Cardiovascular Cardiovascular exam: Present: regular rate and rhythm - GI/Abdominal GI/Abdominal exam: Present: normal bowel sounds Results - Labs CBC & BMP: 10/30/16 01:54 10/30/16 01:54 Lab Results: I have reviewed the past 24 hour labs Quality Measures - VTE Contraindication to Pharmacological VTE Prophylaxis: High Risk of Bleeding
[2016-10-30] MEDS: PANTOPRAZOLE 40 MG TABLET PO SCH (10:10)
[2016-10-30] MEDS: CELECOXIB 200 MG CAPSULE PO SCH (15:21)
[2016-10-30] MEDS: ATORVASTATIN 20 MG TABLET PO SCH (21:11)
[2016-10-31] MEDS: cefTRIAXone 1,000 MG in SODIUM CHLORIDE 0.9% 100 ML IV SCH (01:17)
[2016-10-31] MEDS: FONDAPARINUX 2.5 MG/0.5 ML SYRINGE SUBCUT SCH (01:17)
[2016-10-31 02:55] LABS: Basophils % 0.1 % (0.0-0.8); Eosinophils # 0.3 10*3/uL (0.0-0.87); Eosinophils % 3.4 % (0.00-10.9); Hematocrit 23.1 VOL% (35.7-47.0); Hemoglobin 7.5 GM/DL (12.0-16.0); Immature Granulocytes % 1.7 %; Immature Granulocytes Absolute 0.13 #; Lymphocytes % 12.7 % (21.3-54.2); Mean Corpuscular HGB Conc 32.5 GM/DL (32-36); Mean Corpuscular Hemoglobin 32 PG (27-34); Mean Corpuscular Volume 99.6 FL (87-102); Mean Platelet Volume 11.3 FL (9.6-12.0); Monocytes # 0.9 10*3/uL (0.11-0.8); Monocytes % 12.2 % (1.7-12.7); Neutrophils # 5.3 10*3/uL (1.4-7.4); Neutrophils % 69.9 % (38.7-73.9); Platelet Count 137 T/CUMM (130-400); Red Blood Count 2.32 MC/CUMM (3.8-5.5); White Blood Count 7.6 T/CUMM (4-12)
[2016-10-31 03:42] LABS: Band Neutrophils 2 % (0-10); Eosinophils 1 % (0-10); Lymphocytes 12 % (20-55); Segmented Neutrophils 79 % (50-85); Total Cells Counted 100
[2016-10-31 03:43] LABS: Platelet Estimate Adequate; Polychromasia Slight; Schistocytes Few
[2016-10-31] MEDS ORDERED: SODIUM CHLORIDE 0.9% 250 ML IV PRN (08:28)
--- NOTE | 2016-10-31 09:06 | Hospitalist Progress Note ---
Assessment and Plan (1) Subcapital fracture of right hip Status: Acute Assessment and plan: The patient has had surgery for the right hip. The patient now begins rehabilitation. Hemoglobin is down to 7.5 and I have ordered blood transfusion of 2 units packed red blood cells. Current Visit: Yes Qualifiers: Encounter type: initial encounter Fracture type: closed Qualified Code(s) : S72.011A - Unspecified intracapsular fracture of right femur, initial encounter for closed fracture (2) UTI (urinary tract infection) Status: Acute Current Visit: Yes Hospitalist: Subjective Interval history: The patient is resting comfortably in bed today. She has less pain. The patient does not complain of shortness of breath or angina. Exam - Constitutional Vitals: Period Temp Pulse Resp BP Sys/Epps Pulse Ox Last 24 Hr 98.5 F-99.5 F 61-81 18-18 107-136/54-69 89-97 General appearance: mild distress - Respiratory Respiratory exam: Present: clear to auscultation bilaterally - Cardiovascular Cardiovascular exam: Present: regular rate and rhythm - GI/Abdominal GI/Abdominal exam: Present: normal bowel sounds Results - Labs CBC & BMP: 10/31/16 02:29 10/30/16 01:54 Lab Results: I have reviewed the past 24 hour labs Quality Measures - VTE Contraindication to Pharmacological VTE Prophylaxis: High Risk of Bleeding
--- NOTE | 2016-10-31 09:07 | Orthopedic Progress Note ---
Assessment and Plan (1) Subcapital fracture of right hip Status: Acute Assessment and plan: Status post hemiarthroplasty Transfusion today DVT prophylaxis Continue PT Discharge planning Current Visit: Yes Qualifiers: Encounter type: initial encounter Fracture type: closed Qualified Code(s) : S72.011A - Unspecified intracapsular fracture of right femur, initial encounter for closed fracture Orthopedics - Subjective Interval history: No new complaints today, pain is controlled. Patient states she was able to do a little bit of walking with therapy yesterday. On exam dressings clean and dry, she is neurovascularly intact. Exam - Constitutional Vitals: Period Temp Pulse Resp BP Sys/Epps Pulse Ox Last 24 Hr 98.5 F-99.5 F 61-81 18-18 107-136/54-69 89-97 Results - Labs CBC & BMP: 10/31/16 02:29 10/30/16 01:54 Quality Measures - VTE Contraindication to Pharmacological VTE Prophylaxis: High Risk of Bleeding
[2016-10-31] MEDS: PANTOPRAZOLE 40 MG TABLET PO SCH (10:39)
[2016-10-31] MEDS: METOPROLOL TARTRATE 100 MG TABLET PO SCH ×2 (10:39→21:07)
[2016-10-31] MEDS: amLODIPine 2.5 MG TABLET PO SCH (10:39)
[2016-10-31] MEDS: MULTIVITAMIN (CENTRUM) TABLET PO SCH (10:40)
[2016-10-31] MEDS: FERROUS GLUCONATE 324 MG TABLET PO SCH (10:40)
[2016-10-31] MEDS: LOSARTAN 25 MG TABLET PO SCH (10:41)
[2016-10-31] MEDS: DOCUSATE SODIUM 100 MG CAPSULE PO SCH ×2 (10:42→21:07)
[2016-10-31] MEDS: CELECOXIB 200 MG CAPSULE PO SCH (10:43)
[2016-10-31] MEDS: ATORVASTATIN 20 MG TABLET PO SCH (21:07)
[2016-11-01] MEDS: cefTRIAXone 1,000 MG in SODIUM CHLORIDE 0.9% 100 ML IV SCH (00:52)
[2016-11-01] MEDS: FONDAPARINUX 2.5 MG/0.5 ML SYRINGE SUBCUT SCH (01:50)
[2016-11-01 06:25] LABS: Basophils % 0.3 % (0.0-0.8); Eosinophils # 0.3 10*3/uL (0.0-0.87); Eosinophils % 4.1 % (0.00-10.9); Hematocrit 31.9 VOL% (35.7-47.0); Hemoglobin 10.5 GM/DL (12.0-16.0); Immature Granulocytes % 4.5 %; Immature Granulocytes Absolute 0.29 #; Lymphocytes # 0.9 10*3/uL (1.4-4.0); Lymphocytes % 14.5 % (21.3-54.2); Mean Corpuscular HGB Conc 32.9 GM/DL (32-36); Mean Corpuscular Hemoglobin 31 PG (27-34); Mean Corpuscular Volume 95.2 FL (87-102); Mean Platelet Volume 11.5 FL (9.6-12.0); Monocytes # 0.8 10*3/uL (0.11-0.8); Monocytes % 11.9 % (1.7-12.7); Neutrophils # 4.2 10*3/uL (1.4-7.4); Neutrophils % 64.7 % (38.7-73.9); Platelet Count 158 T/CUMM (130-400); Red Blood Count 3.35 MC/CUMM (3.8-5.5); Red Cell Distribution Width 15.3 % (9.3-17.3); White Blood Count 6.4 T/CUMM (4-12)
[2016-11-01 07:03] LABS: Calcium 8.2 MG/DL (8.5-10.1); Osmolality,Calculated 282.1 MOS/KG (273-304); Potassium 4.4 MMOL/L (3.5-5.1)
[2016-11-01 07:14] LABS: Lymphocytes 4 % (20-55); Segmented Neutrophils 89 % (50-85); Total Cells Counted 100
[2016-11-01 07:15] LABS: Hypochromasia 1+; Microcytosis 1+; Platelet Estimate Adequate
[2016-11-01] MEDS: LOSARTAN 25 MG TABLET PO SCH (08:14)
[2016-11-01] MEDS: FERROUS GLUCONATE 324 MG TABLET PO SCH (08:14)
[2016-11-01] MEDS: METOPROLOL TARTRATE 100 MG TABLET PO SCH (08:15)
[2016-11-01] MEDS: amLODIPine 2.5 MG TABLET PO SCH (08:15)
[2016-11-01] MEDS: PANTOPRAZOLE 40 MG TABLET PO SCH (08:15)
[2016-11-01] MEDS: DOCUSATE SODIUM 100 MG CAPSULE PO SCH (08:15)
[2016-11-01] MEDS: CELECOXIB 200 MG CAPSULE PO SCH (08:15)
[2016-11-01] MEDS: MULTIVITAMIN (CENTRUM) TABLET PO SCH (08:15)
--- NOTE | 2016-11-01 08:36 | Orthopedic Progress Note ---
Assessment and Plan (1) Subcapital fracture of right hip Status: Acute Current Visit: Yes Qualifiers: Encounter type: initial encounter Fracture type: closed Qualified Code(s) : S72.011A - Unspecified intracapsular fracture of right femur, initial encounter for closed fracture Orthopedics - Subjective Interval history: Shelby Stiles was transfused yesterday. Her dressing shows slight serosanguineous drainage. Her right lower extremity is neurovascularly unchanged. Plan: Mobilize with physical therapy. She can be discharged to swing bed in stable condition. Posterior hip precautions for 3 months. Daily dry dressing changes. Arrange for walker and bedside commode for home use. Wear TITI hose for 1 month. Follow-up appointment in 4 weeks. Discontinue zeeshan and Steri-Strip wound on November 10, 2016. Continue Arixtra while at swing bed. May stop when discharged Exam - Constitutional Vitals: Period Temp Pulse Resp BP Sys/Epps Pulse Ox Last 24 Hr 98.3 F-99.0 F 66-77 16-20 128-165/65-87 89-98 Results - Labs CBC & BMP: 11/01/16 04:15 11/01/16 04:15 Quality Measures - VTE Contraindication to Pharmacological VTE Prophylaxis: High Risk of Bleeding
[2016-11-01] MEDS ORDERED: TUBERCULIN SKIN TEST 0.1 ML SYRINGE INTRADERM ONE (09:46)
--- NOTE | 2016-11-01 10:49 | Discharge Summary ---
Hospital Course - Hospital Course Hospital Course: 85 year old female with a history of HTN, CAD s/p stent, hyperlipidemia who presented to a local ER with a right hip pain. She was walking around the house when she tripped, fell and developed a right hip pain. She was taken to [facility] where they discovered a right femur neck fracture and dislocation on X- ray and was transferred here for orthopedics evaluation. She was admitted to the hospitalist service and was evaluated by orthopedics Dr. Knox as well and a right hip hemiarthroplasty was planned. Patient also had a E. coli urinary tract infection that was present on admission involving urinary bladder, she completed her course of IV Rocephin and it has resolved. She was she also had anemia of acute blood loss and required packed RBC transfusion. Initially she had problems with hypokalemia and hypomagnesemia and those were replaced as needed and currently in the normal range. She received DVT prophylaxis with Arixtra. head loft worker was consulted and she has been accepted into a rehab place today to continue her physical therapy over there. She is now stable to be discharged to rehab today. - Time spent with patient Time with patient DS: Less than 30 minutes Diagnosis - Discharge Diagnosis (1) Subcapital fracture of right hip Status: Resolved (2) Hypokalemia Status: Resolved (3) UTI (urinary tract infection) Status: Resolved (4) Acute renal insufficiency Status: Chronic Specialty Discharge - Follow Up or Referrals Follow up with: Gurvinder Knox Jr., MD [Physician] - 11/30/16 8:30 am Discharge Plan - Discharge Medications No Action Ferrous Gluconate 324 mg PO DAILY Losartan [Cozaar] 12.5 mg PO DAILY amLODIPine [Norvasc] 5 mg PO DAILY Multivitamin with Minerals [Multivitamins with Minerals] 1 each PO DAILY Atorvastatin [Lipitor] 20 mg PO BEDTIME Metoprolol Tartrate 100 mg PO BID Aspirin Tab 325 mg PO DAILY - Follow Up or Referral Follow Up: Gurvinder Knox Jr., MD [Physician] - 11/30/16 8:30 am - Forms/Instructions Exam - Constitutional Vitals: Period Temp Pulse Resp BP Sys/Epps Pulse Ox Last 24 Hr 98.3 F-99.0 F 66-77 16-20 128-165/65-87 89-98 Exam: General: No Acute Distress HEENT: Normocephalic, atraumatic, Extra ocular movements intact Neck: Supple, No JVD Chest: Clear to auscultation B/L CV: S1 + S2 audible without murmur, gallop or rub Abd: soft, NT, Non-distended, BS + Ext: Her right hip dressing shows slight serosanguineous drainage Skin: No purpura, bruising or rash Rheumatologic: No Joint deformities Neurologic: Strengtg 5/5 all extremities, no gross sensory deficits Discharge Results Labs on day of discharge: Labs from last 24 hours 11/01/16 11/01/16 10/31/16 04:15 04:15 02:27 WBC 6.4 RBC 3.35 L D Hgb 10.5 L D Hct 31.9 L MCV 95.2 MCH 31 MCHC 32.9 RDW 15.3 Plt Count 158 MPV 11.5 Neut % (Auto) 64.7 Lymph % (Auto) 14.5 L [place] % (Auto) 11.9 Eos % (Auto) 4.1 Baso % (Auto) 0.3 Neut # (Auto) 4.2 Lymph # (Auto) 0.9 L [place] # (Auto) 0.8 Eos # (Auto) 0.3 Baso # (Auto) 0.0 Total Counted 100 Immature Gran % 4.5 Nucleated RBC % 0.0 Immature Gran # 0.29 Segmented Neutrophils 89 H Lymphocytes 4 L Monocytes 7 Nucleated RBCs # 0.00 Platelet Estimate Adequate Immature Plt Fraction 0.0 Hypochromasia 1+ Microcytosis 1+ Sodium 142 Potassium 4.4 Chloride 109 H Carbon Dioxide 25 Anion Gap 12.4 BUN 18 Creatinine 1.30 H GFR Calculation 41 BUN/Creatinine Ratio 13.00 Glucose 70 L Calculated Osmolality 282.1 Calcium 8.2 L Magnesium 2.0 Blood Type O POSITIVE Antibody Screen Negative Crossmatch See Detail 10/28/16 00:58 WBC RBC Hgb Hct MCV MCH MCHC RDW Plt Count MPV Neut % (Auto) Lymph % (Auto) [place] % (Auto) Eos % (Auto) Baso % (Auto) Neut # (Auto) Lymph # (Auto) [place] # (Auto) Eos # (Auto) Baso # (Auto) Total Counted Immature Gran % Nucleated RBC % Immature Gran # Segmented Neutrophils Lymphocytes Monocytes Nucleated RBCs # Platelet Estimate Immature Plt Fraction Hypochromasia Microcytosis Sodium Potassium Chloride Carbon Dioxide Anion Gap BUN Creatinine GFR Calculation BUN/Creatinine Ratio Glucose Calculated Osmolality Calcium Magnesium Blood Type O POSITIVE Antibody Screen Negative Crossmatch See Detail DS: Provider Date of admission: 10/27/16 22:54 Primary care physician: . No PCP Attending physician on admission: Summer Salcedo MD Consults: 10/28/16 07:12 Consult to Physician [CONS] Routine Comment: Consulting Provider: Gurvinder Knox Jr. Consulting Provider Notified: Yes When should Consulting Provider be notified: Now Consult to Specialist Group: Orthopedic Person Notified: estuardo matt called Date Notified: 10/28/16 Time Notified: 08:01 10/29/16 08:13 Consult to Case Mgmt/Social Srvs [CONS] Routine Reason for Case Mgmt/Social Srvs: Rehab Home Health Equipment Consult Comment: Bedside Commode, CPM, Walker Consult to Occupational Therapy [CONS] Routine Reason for Occupational Therapy: Evaluate and Treat Consult Comment: ADL's Consult to Physical Therapy [CONS] Routine Reason for Physical Therapy: Evaluate and Treat Gait Training Start Therapy: Today Consult Comment: Weightbearing as tolerated, posterior precautions Discharging clinician: Hesham Pimentel MD
--- NOTE | 2016-11-01 10:58 | Discharge Summary ---
Hospital Course - Hospital Course Hospital Course: 85 year old female with a history of HTN, CAD s/p stent, hyperlipidemia who presented to a local ER with a right hip pain. She was walking around the house when she tripped, fell and developed a right hip pain. She was taken to [facility] where they discovered a right femur neck fracture and dislocation on X- ray and was transferred here for orthopedics evaluation. She was admitted to the hospitalist service and was evaluated by orthopedics Dr. Knox as well and a right hip hemiarthroplasty was planned. Patient also had a E. coli urinary tract infection that was present on admission involving urinary bladder, she completed her course of IV Rocephin and it has resolved. She was she also had anemia of acute blood loss and required packed RBC transfusion. Initially she had problems with hypokalemia and hypomagnesemia and those were replaced as needed and currently in the normal range. She received DVT prophylaxis with Arixtra. community center worker was consulted and she has been accepted into a rehab place today to continue her physical therapy over there. She is now stable to be discharged to rehab today. Diagnosis - Discharge Diagnosis (1) Subcapital fracture of right hip Status: Resolved (2) Hypokalemia Status: Resolved (3) UTI (urinary tract infection) Status: Resolved (4) Acute renal insufficiency Status: Chronic Specialty Discharge - Follow Up or Referrals Follow up with: Gurvinder Knox Jr., MD [Physician] - 11/30/16 8:30 am Discharge Plan - Discharge Data Disposition: Disch/Xfer-Ip Rehab Fac Discharge Diet: heart healthy, low salt diet Activity: as per physical therapy - Discharge Medications New Celecoxib [Celebrex] 200 mg PO DAILY #30 capsule Docusate Sodium Cap [Colace Cap] 100 mg PO BID capsule HYDROcodone/ACETAMIN 7.5-325 [[place] 7.5-325] 2 tablet PO Q4H PRN #30 tablet PRN Reason: Moderate Pain unrelieved by 1 Apixaban [Eliquis] 2.5 mg PO BID #60 tablet Magnesium Hydroxide Susp [Milk of Magnesia] 30 ml PO Q6H PRN #1 PRN Reason: Constipation Continue Ferrous Gluconate 324 mg PO DAILY Losartan [Cozaar] 12.5 mg PO DAILY amLODIPine [Norvasc] 5 mg PO DAILY Multivitamin with Minerals [Multivitamins with Minerals] 1 each PO DAILY Atorvastatin [Lipitor] 20 mg PO BEDTIME Metoprolol Tartrate 100 mg PO BID Aspirin Tab 325 mg PO DAILY - Follow Up or Referral Follow Up: Gurvinder Knox Jr., MD [Physician] - 11/30/16 8:30 am - Forms/Instructions Exam - Constitutional Vitals: Period Temp Pulse Resp BP Sys/Epps Pulse Ox Last 24 Hr 98.3 F-99.0 F 66-77 16-20 128-165/65-87 89-98 Discharge Results Labs on day of discharge: Labs from last 24 hours 11/01/16 11/01/16 10/31/16 04:15 04:15 02:27 WBC 6.4 RBC 3.35 L D Hgb 10.5 L D Hct 31.9 L MCV 95.2 MCH 31 MCHC 32.9 RDW 15.3 Plt Count 158 MPV 11.5 Neut % (Auto) 64.7 Lymph % (Auto) 14.5 L [place] % (Auto) 11.9 Eos % (Auto) 4.1 Baso % (Auto) 0.3 Neut # (Auto) 4.2 Lymph # (Auto) 0.9 L [place] # (Auto) 0.8 Eos # (Auto) 0.3 Baso # (Auto) 0.0 Total Counted 100 Immature Gran % 4.5 Nucleated RBC % 0.0 Immature Gran # 0.29 Segmented Neutrophils 89 H Lymphocytes 4 L Monocytes 7 Nucleated RBCs # 0.00 Platelet Estimate Adequate Immature Plt Fraction 0.0 Hypochromasia 1+ Microcytosis 1+ Sodium 142 Potassium 4.4 Chloride 109 H Carbon Dioxide 25 Anion Gap 12.4 BUN 18 Creatinine 1.30 H GFR Calculation 41 BUN/Creatinine Ratio 13.00 Glucose 70 L Calculated Osmolality 282.1 Calcium 8.2 L Magnesium 2.0 Blood Type O POSITIVE Antibody Screen Negative Crossmatch See Detail 10/28/16 00:58 WBC RBC Hgb Hct MCV MCH MCHC RDW Plt Count MPV Neut % (Auto) Lymph % (Auto) [place] % (Auto) Eos % (Auto) Baso % (Auto) Neut # (Auto) Lymph # (Auto) [place] # (Auto) Eos # (Auto) Baso # (Auto) Total Counted Immature Gran % Nucleated RBC % Immature Gran # Segmented Neutrophils Lymphocytes Monocytes Nucleated RBCs # Platelet Estimate Immature Plt Fraction Hypochromasia Microcytosis Sodium Potassium Chloride Carbon Dioxide Anion Gap BUN Creatinine GFR Calculation BUN/Creatinine Ratio Glucose Calculated Osmolality Calcium Magnesium Blood Type O POSITIVE Antibody Screen Negative Crossmatch See Detail DS: Provider Date of admission: 10/27/16 22:54 Primary care physician: . No PCP Attending physician on admission: Summer Salcedo MD Consults: 10/28/16 07:12 Consult to Physician [CONS] Routine Comment: Consulting Provider: Gurvinder Knox Jr. Consulting Provider Notified: Yes When should Consulting Provider be notified: Now Consult to Specialist Group: Orthopedic Person Notified: estuardo matt called Date Notified: 10/28/16 Time Notified: 08:01 10/29/16 08:13 Consult to Case Mgmt/Social Srvs [CONS] Routine Reason for Case Mgmt/Social Srvs: Rehab Home Health Equipment Consult Comment: Bedside Commode, CPM, Walker Consult to Occupational Therapy [CONS] Routine Reason for Occupational Therapy: Evaluate and Treat Consult Comment: ADL's Consult to Physical Therapy [CONS] Routine Reason for Physical Therapy: Evaluate and Treat Gait Training Start Therapy: Today Consult Comment: Weightbearing as tolerated, posterior precautions Discharging clinician: Hesham Pimentel MD
[2016-11-01 11:40] VITALS: BP 178/93
--- NOTE | 2016-11-01 18:17 | Pathology Report from [facility] ---
[facility] [place] # : [id number] PATIENT NAME : Aminata Aburto ORDERING DR : TIGRE TANNER MD CLINICAL HX: Displaced femoral head fracture, right POST-OP DX: Same SPECIMEN INFO: Right hip bone and tissue GROSS DESCRIPTION: Received in formalin labeled AMINATA ABURTO, HIP BONE & TISSUE consists of a 4.3 x 4.5 x 4.6 cm femoral head. The articular surface is smooth and wylie. The fracture surface is hemorrhagic shaggy and jagged. Bone softening is appreciated. Also received in the specimen container are two portions of femoral neck measuring 3.5 x 5 x 2.5 cm. [employer] tissue is submitted in one cassette following decalcification. DIAGNOSIS FOR AMINATA ABURTO: RIGHT HIP BONE & TISSUE: Trabecular bone with acute hemorrhage. No evidence of malignancy by pancytokeratin immunostain. CD138 immunostain shows increased plasma cells; suggest Serum Protein Electrophoresis COLLECTED DATE: 10/29/2016 [facility] REPORT DATE: 11/01/2016 ELECTRONICALLY SIGNED BY: Libia Mckeon III, M.D. 11/01/2016 - 14:24:55 RAMIN
[2016-11-01] MEDS ORDERED: APIXABAN 2.5 MG TABLET PO SCH (21:00)
== END 2016-11-01 15:20 | DRG 470 ==
LOC: EDUNIT# → EDBD → N.ED 21:14 → N.EDINP 22:54 → SUATTDRO 22:54 → N.3E 23:23
PROVIDERS: ADMIT Internal Medicine; ATTEND Hospitalist